=== PATIENT | female | born 1940 | race Caucasian/White ===

== ENCOUNTER 2022-03-06 09:10 | Observation (INO) ==
--- NOTE | 2022-01-29 16:04 | PAT Medication Instructions ---
Medication Instructions Date of Service January 29, 2022 Home Medications Medication Instructions Recorded oxycodone-acetaminophen 5 mg-325 1 tab PO Q6H PRN pain #30 tabs // mg tablet (Percocet) alpha lipoic acid 200 mg capsule 200 mg PO QAM celecoxib 200 mg capsule (Celebrex) 200 mg PO UD cholecalciferol (vitamin D3) 50 mcg (2,000 unit) tablet (Vitamin D3) 2,000 unit PO QDL coenzyme Q10 100 mg capsule (CoQ-10) 100 mg PO QAM furosemide 40 mg tablet (Lasix) 40 mg PO QAM lactobacillus combination no.4 3 billion cell capsule (Probiotic) 3,000 mmu cells PO BID levothyroxine 125 mcg tablet (Synthroid) 125 mcg PO QAM omega 2-tmz-wkt-fish oil 1,000 mg (120 mg-180 mg) capsule (Fish Oil) 1 cap PO TID potassium chloride 20 mEq tablet,extended release 20 meq PO QAM turmeric root extract 538 mg capsule 538 mg PO BID magnesium 200 mg tablet 400 mg PO HS methylcellulose (laxative) 500 mg tablet (Citrucel) 1,000 mg PO QPM prednisolone acetate 1 % eye drops,suspension 1 drp ophthalmic (eye) QAM amlodipine 5 mg tablet (Norvasc) 5 mg PO QAM oxycodone-acetaminophen 5 mg-325 mg tablet (Percocet) 1 tab PO Q6H PRN ascorbic acid (vitamin C) 500 mg tablet (Vitamin C) 500 mg PO BID levalbuterol tartrate 45 mcg/actuation aerosol inhaler 2 inh inhalation Q6H PRN omeprazole 40 mg capsule,delayed release 40 mg PO QAM ondansetron HCl 4 mg tablet 4 mg PO Q6H PRN sertraline 100 mg tablet 200 mg PO QAM Continue as directed ondansetron HCl 4 mg tablet 4 mg PO Q6H PRN(if needed) ASK your surgeon for instructions celecoxib 200 mg capsule (Celebrex) 200 mg PO UD STOP taking 2 weeks before surgery alpha lipoic acid 200 mg capsule 200 mg PO QAM coenzyme Q10 100 mg capsule (CoQ-10) 100 mg PO QAM omega 2-ktn-ssn-fish oil 1,000 mg (120 mg-180 mg) capsule (Fish Oil) 1 cap PO TID turmeric root extract 538 mg capsule 538 mg PO BID DO NOT take the morning of surgery cholecalciferol (vitamin D3) 50 mcg (2,000 unit) tablet (Vitamin D3) 2,000 unit PO QDL furosemide 40 mg tablet (Lasix) 40 mg PO QAM lactobacillus combination no.4 3 billion cell capsule (Probiotic) 3,000 mmu cells PO BID potassium chloride 20 mEq tablet,extended release 20 meq PO QAM ascorbic acid (vitamin C) 500 mg tablet (Vitamin C) 500 mg PO BID Take morning of surgery With a small sip of water, OTHERWISE NOTHING TO EAT OR DRINK AFTER MIDNIGHT: levothyroxine 125 mcg tablet (Synthroid) 125 mcg PO QAM prednisolone acetate 1 % eye drops,suspension 1 drp ophthalmic (eye) QAM amlodipine 5 mg tablet (Norvasc) 5 mg PO QAM oxycodone-acetaminophen 5 mg-325 mg tablet (Percocet) 1 tab PO Q6H PRN(if needed) levalbuterol tartrate 45 mcg/actuation aerosol inhaler 2 inh inhalation Q6H PRN (use if needed; please bring with you to hospital day of surgery if possible) omeprazole 40 mg capsule,delayed release 40 mg PO QAM sertraline 100 mg tablet 200 mg PO QAM Take evening before surgery lactobacillus combination no.4 3 billion cell capsule (Probiotic) 3,000 mmu cells PO BID magnesium 200 mg tablet 400 mg PO HS methylcellulose (laxative) 500 mg tablet (Citrucel) 1,000 mg PO QPM oxycodone-acetaminophen 5 mg-325 mg tablet (Percocet) 1 tab PO Q6H PRN(if needed) ascorbic acid (vitamin C) 500 mg tablet (Vitamin C) 500 mg PO BID levalbuterol tartrate 45 mcg/actuation aerosol inhaler 2 inh inhalation Q6H PRN (if needed) Other Notes If you have any questions please call us at [phone] or [phone] or [phone] or [phone]
--- NOTE | 2022-02-02 13:32 | Anesthesiology Consultation ---
Date of Service February 02, 2022 Assessment & Plan (1) Encounter for pre-operative examination: - pulmonology appointment 03/02, Dr. Alves [facility] [place]. - PCP pre-op evaluation 02/24, Jami Hernandez in [place]. - Case discussed in detail with Dr. Ramos including reported symptoms and he advised patient does not need a cardiology evaluation prior to surgery or any additional testing. - cardiology 07/25/21: "...mild shortness of breath, labile hypertension, hypertensive heart disease and history of mild pulmonary fibrosis stable...close clinical follow up with the continued medical treatment..." Chart Review Chart Review: Pending: Refer to Additional Notes / Consult section and Patient seen in Pre Admission Testing Teaching & Discussion Pre-Anesthesia Teaching/Discussion Notes: Instructed NPO after midnight before surgery, except medications with 15 cc of water. Medication instructions provided according to the PAT guidelines. History Surgery Operation Date: 03/06/22 12:50 Proposed Procedures p Right Reverse Total Shoulder Arthroplasty - Lion Contreras, Height/Weight Height: 5 ft 2 in Weight: 78.018 kg Allergies Allergy/AdvReac Type Severity Reaction Status Date / Time Sulfa (Sulfonamide Allergy Unknown Rash Verified 01/28/22 10:08 Antibiotics) sulfamethoxazole Allergy Unknown Rash Verified 01/28/22 10:08 trimethoprim Allergy Unknown RASH Verified 01/28/22 10:08 Medications Home Medications Medication Instructions Recorded Confirmed Last Taken alpha lipoic acid 200 mg capsule 200 mg PO QAM 03/13/19 01/28/22 04/07/20 celecoxib 200 mg capsule (Celebrex) 200 mg PO UD 03/13/19 01/28/22 04/07/20 cholecalciferol (vitamin D3) 50 2,000 unit PO QDL 03/13/19 01/28/22 04/07/20 mcg (2,000 unit) tablet (Vitamin D3) coenzyme Q10 100 mg capsule 100 mg PO QAM 03/13/19 01/28/22 03/25/20 (CoQ-10) furosemide 40 mg tablet (Lasix) 40 mg PO QAM 03/13/19 01/28/22 04/07/20 lactobacillus combination no.4 3 3,000 mmu cells PO BID 03/13/19 01/28/22 04/02/19 billion cell capsule (Probiotic) levothyroxine 125 mcg tablet 125 mcg PO QAM 03/13/19 01/28/22 04/08/20 05:45 (Synthroid) omega 1-hei-sax-fish oil 1,000 mg 1 cap PO TID 03/13/19 01/28/22 04/07/20 (120 mg-180 mg) capsule (Fish Oil) potassium chloride 20 mEq 20 meq PO QAM 03/13/19 01/28/22 04/07/20 tablet,extended release turmeric root extract 538 mg 538 mg PO BID 03/13/19 01/28/22 03/25/20 capsule magnesium 200 mg tablet 400 mg PO HS 03/20/20 01/28/22 04/07/20 methylcellulose (laxative) 500 mg 1,000 mg PO QPM 03/20/20 01/28/22 Unknown tablet (Citrucel) prednisolone acetate 1 % eye 1 drp ophthalmic (eye) QAM 03/20/20 01/28/22 04/07/20 drops,suspension amlodipine 5 mg tablet (Norvasc) 5 mg PO QAM 10/22/20 01/28/22 Unknown ascorbic acid (vitamin C) 500 mg 500 mg PO BID 01/28/22 01/28/22 Unknown tablet (Vitamin C) levalbuterol tartrate 45 2 inh inhalation Q6H PRN sob 01/28/22 01/28/22 Unknown mcg/actuation aerosol inhaler omeprazole 40 mg capsule,delayed 40 mg PO QAM 01/28/22 01/28/22 Unknown release ondansetron HCl 4 mg tablet 4 mg PO Q6H PRN Nausea 01/28/22 01/28/22 Unknown sertraline 100 mg tablet 200 mg PO QAM 01/28/22 01/28/22 Unknown oxycodone-acetaminophen 5 mg-325 1 tab PO Q6H PRN pain #30 tabs 02/02/22 02/02/22 Unknown mg tablet (Percocet) Past Medical History Medical History (Updated 02/02/22 @ 13:41 by Liz Ortega PA-C) Anxiety Asthma adult onset asthma. well controlled. last rescue inhaler use several wks ago Carotid artery stenosis mild bilat ICA stenosis (1-49%) per 01/23/21 carotid doppler report Depression GERD (gastroesophageal reflux disease) controlled, stable per pt Hearing deficit BL VALENTINO History of anesthesia reaction woke up during a hip surgery. History of colon polyps History of diverticulosis History of gastric ulcer History of skin cancer BASAL CELL, right lower leg, s/p excision Hyperlipidemia Hypothyroidism Mild aortic regurgitation Mild mitral regurgitation Pulmonary fibrosis Sleep apnea CPAP-compliant Patient denies h/o stroke, seizures, heart attack, heart failure, DM, blood clots or blood transfusions. Exercise / Class Metabolic Activity II 4-5 Yardwork/Stairs/Walk up hill (occasional SOB walking up 1 FOS, denies chest discomfort; denies change or worsening, states is ongoing at least several months) Past Family History Family History Sister Family history of diabetes mellitus Sister Family history of breast cancer Other No family history of adverse response to anesthesia Past Surgical History Surgical History (Updated 02/02/22 @ 13:39 by Liz Ortega PA-C) History of bilateral hip replacements History of bilateral knee replacement bilat History of cataract surgery BL History of colonoscopy History of esophagogastroduodenoscopy (EGD) History of keratoplasty bilateral History of tooth extraction History of total abdominal hysterectomy and bilateral salpingo-oophorectomy History of tubal ligation Past Anesthesia History No Family Hx of Anesthesia Complications and Other (awareness during hip surgery) History of PONV No Hx of PONV and No Hx of Motion Sickness Social History Smoking Status: Former smoker tobacco type: cigarettes Do You Dip or Chew Tobacco: No Smoking End Date: 1967 Hx Alcohol Use: No Hx Substance Use: No substance use type: does not use Review of Systems Occasional dizziness/lightheadedness when working outside in warm weather and stands up too quickly. Denies pre-syncope or syncopal episodes. Denies visual changes. Denies change in chronic headaches. Rare chronic palpitations per patient with chronic PVCs. Patient denies chest pain, fever, chills, cough, or wheezing. Physical Exam Vital Signs Vitals BP 150/71 P 72 TEMP 98.4 SP02 96% on RA RESP 18 Physical Full cervical extension range of motion without pain TMD 3.5 finger breadths Mallampati Score 3 Dentition: intact, upper denture, crown lower right side; denies chipped or loose teeth Lungs: normal respiratory effort. Clear throughout to auscultation, no adventitious breath sounds Cardiac: regular rate and rhythm, no murmurs noted Carotid arteries: negative bruit bilat Lab Results Anesthesia Preop Results Results Anesthesia Widget: WBC 4.73 K/ul (4.8-10.8) L 02/02/22 Hgb 13.4 g/dl (12.0-16.0) 02/02/22 Hct 40.1 % (34.1-44.9) 02/02/22 Plt 218 K/uL (130-400) 02/02/22 Na 140 mmol/L (136-145) 02/02/22 K 4.3 mmol/L (3.5-5.1) 02/02/22 Cl 104 mmol/L (98-107) 02/02/22 CO2 30 mmol/L (21-32) 02/02/22 BUN 16 mg/dl (6-23) 02/02/22 Creat 0.58 mg/dl (0.6-1.2) L 02/02/22 Glucose Level 95 mg/dl (70-99(Fasting)) 02/02/22 PT 10.8 Seconds (9.0-12.0) 02/02/22 PTT 28.9 Seconds (21.0-31.0) 02/02/22 INR 1.0 (0.9-1.1) 02/02/22 Blood Type O Positive 02/02/22 Antibody Screen NEGATIVE 02/02/22 Testing Electrocardiogram Date: 02/02/22 NSR, rate 72 bpm Chest X-Ray Date: 02/02/22 Cardiomediastinal and hilar silhouettes are within normal limits. No pneumothorax, pleural effusion, airspace consolidation or overt pulmonary edema. Degenerative changes of the shoulders and spine. IMPRESSION: No acute process. Echocardiogram Date: 09/25/20 EF 55-60% Grade I diastolic dysfunction Mild cLVH Mild aortic regurgitation Stress Test Date: 09/25/20 Pharmacologic MPHR not listed on report Negative for ischemia EF 65% Other Testing Carotid doppler 01/23/21 Mild bilateral internal carotid artery stenosis 1-49% COVID-19 Risk Screen Screening Information COVID-19 Screen Date: 02/02/22 Exposure 21 Days Family/Household +COVID Last 21 Days: No Exposure 10 Days Any COVID Exposure Last 10 Days: No Symptoms Last 10 Days Experienced COVID Sx Last 10 Days: No + COVID 0-90 Days COVID + in Last 0-90 Days: No
--- NOTE | 2022-03-05 07:54 | History & Physical Report ---
Date of Service March 05, 2022 Assessment & Plan (1) Rotator cuff tear, right: We will proceed with a right reverse shoulder arthroplasty. Postoperatively she will be placed in a sling and kept overnight in the hospital for postoperative medical management. She plans to have the hospital set up home health for discharge. History of Present Illness Chief Complaint: Cuff tear arthropathy of the right shoulder . Primary Care Provider: MELISSA Aguilar is a pleasant 81-year-old female who has been dealing with chronic bilateral shoulder pain. She has an MRI of her left shoulder in June 2018, which shows small rotator cuff tear. I have been treating her with serial injections. She has also been dealing with right shoulder pain. 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 I have been treating her with serial injections. Unfortunately, her right shoulder is getting worse.She is having trouble doing any activities away from her body or up overhead. It hurts her all the time. She presents to the office today to discuss further treatment. . Allergies Allergy/AdvReac Type Severity Reaction Status Date / Time Sulfa (Sulfonamide Allergy Unknown Rash Verified 01/28/22 10:08 Antibiotics) sulfamethoxazole Allergy Unknown Rash Verified 01/28/22 10:08 trimethoprim Allergy Unknown RASH Verified 01/28/22 10:08 Home Medications Medication Instructions Recorded Confirmed Type alpha lipoic acid 200 mg capsule 200 mg PO QAM 03/13/19 01/28/22 History celecoxib 200 mg capsule (Celebrex) 200 mg PO UD 03/13/19 01/28/22 History cholecalciferol (vitamin D3) 50 2,000 unit PO QDL 03/13/19 01/28/22 History mcg (2,000 unit) tablet (Vitamin D3) coenzyme Q10 100 mg capsule 100 mg PO QAM 03/13/19 01/28/22 History (CoQ-10) furosemide 40 mg tablet (Lasix) 40 mg PO QAM 03/13/19 01/28/22 History lactobacillus combination no.4 3 3,000 mmu cells PO BID 03/13/19 01/28/22 History billion cell capsule (Probiotic) levothyroxine 125 mcg tablet 125 mcg PO QAM 03/13/19 01/28/22 History (Synthroid) omega 0-uxg-xnk-fish oil 1,000 mg 1 cap PO TID 03/13/19 01/28/22 History (120 mg-180 mg) capsule (Fish Oil) potassium chloride 20 mEq 20 meq PO QAM 03/13/19 01/28/22 History tablet,extended release turmeric root extract 538 mg 538 mg PO BID 03/13/19 01/28/22 History capsule magnesium 200 mg tablet 400 mg PO HS 03/20/20 01/28/22 History methylcellulose (laxative) 500 mg 1,000 mg PO QPM 03/20/20 01/28/22 History tablet (Citrucel) prednisolone acetate 1 % eye 1 drp ophthalmic (eye) QAM 03/20/20 01/28/22 History drops,suspension amlodipine 5 mg tablet (Norvasc) 5 mg PO QAM 10/22/20 01/28/22 History ascorbic acid (vitamin C) 500 mg 500 mg PO BID 01/28/22 01/28/22 History tablet (Vitamin C) levalbuterol tartrate 45 2 inh inhalation Q6H PRN sob 01/28/22 01/28/22 History mcg/actuation aerosol inhaler omeprazole 40 mg capsule,delayed 40 mg PO QAM 01/28/22 01/28/22 History release ondansetron HCl 4 mg tablet 4 mg PO Q6H PRN Nausea 01/28/22 01/28/22 History sertraline 100 mg tablet 200 mg PO QAM 01/28/22 01/28/22 History oxycodone-acetaminophen 5 mg-325 1 tab PO Q6H PRN pain #30 tabs 02/02/22 02/02/22 Rx mg tablet (Percocet) Past Med/Surg History Medical History Anxiety Asthma adult onset asthma. well controlled. last rescue inhaler use several wks ago Carotid artery stenosis mild bilat ICA stenosis (1-49%) per 01/23/21 carotid doppler report Depression GERD (gastroesophageal reflux disease) controlled, stable per pt Hearing deficit BL VALENTINO History of anesthesia reaction woke up during a hip surgery. History of colon polyps History of diverticulosis History of gastric ulcer History of skin cancer BASAL CELL, right lower leg, s/p excision Hyperlipidemia Hypothyroidism Mild aortic regurgitation Mild mitral regurgitation Pulmonary fibrosis Sleep apnea CPAP-compliant Surgical History History of bilateral hip replacements History of bilateral knee replacement bilat History of cataract surgery BL History of colonoscopy History of esophagogastroduodenoscopy (EGD) History of keratoplasty bilateral History of tooth extraction History of total abdominal hysterectomy and bilateral salpingo-oophorectomy History of tubal ligation Family History Sister Family history of diabetes mellitus Sister Family history of breast cancer Other No family history of adverse response to anesthesia Social History Smoking Status: Former smoker Second Hand Exposure: No; Hx Alcohol Use: No Hx Substance Use: No Preferred Language: Irish Communication Ability: Effective [employer] Required: No Beliefs That Will Affect Care: None Current Living Situation: Alone Feels Safe at Home: Yes Assistive Devices: CPAP, Denture - Upper, Glasses and Hearing Aid - Bilateral Review of Systems All systems reviewed & are unremarkable except as noted in HPI & below. Physical Exam On physical examination of the right shoulder, she has decreased range of motion and weakness throughout. She has pain over the glenohumeral joint line. . Constitutional WD/WN, vitals as above Eyes PERRL, conjunctivae normal, anicteric sclerae ENMT external ear and nose normal, oropharynx normal Neck trachea midline, no thyromegaly Respiratory normal respiratory effort, lungs clear to auscultation Cardiovascular RRR, no murmur, no edema Gastrointestinal (Abdomen) normal bowel sounds, soft, nontender, no hepatosplenomegaly Skin no rashes, warm and dry Psychiatric A+Ox3, euthymic affect Results & Data Results & Data Laboratory Results . Diagnostic Findings X-rays of the right shoulder show superior migration of the humeral head on the glenoid. There is also signs of glenohumeral arthritis. . PG Care Time/CCT Total # of Minutes Spent Total Time Spent with Patient: Total time spent is greater than 50% in coordination of care (as documented) at patient's floor/unit and/or counseling patient: Coding Level of Care Code None Diagnoses Rotator cuff tear, right M75.101
[~2022-03-06 09:10] MED LIST: ACETAMINOPHEN 500 MG TAB PO SCH; BUPIVACAINE 0.5 % 5 MG/1 ML PF 10ML VIAL ONE; FAMOTIDINE 20 MG TAB PO SCH; GABAPENTIN 300 MG CAP PO SCH; LR 15ML/HR IV SCH; LR 60ML/HR IV SCH; ORTHO JOINT MIX INFIL SCH; TRANEXAMIC ACID 1,000 MG **IV Intra-op IV SCH; TRANEXAMIC ACID 1,000 MG **IV Pre-op IV SCH; ceFAZolin 2000MG 2,000 MG/15 ML SYR IV SCH; dexAMETHasone 4 MG TAB PO SCH
[2022-03-06] MEDS ORDERED: fentaNYL citrate 100 MCG/2 ML VIAL ONE (10:33)
[2022-03-06] MEDS ORDERED: ROCURONIUM BROMIDE 10 MG/ML 5 ML VIAL IV ONE (10:33)
[2022-03-06] MEDS ORDERED: PROPOFOL IV EMULSION 10 MG/ML 20 ML VIAL IV ONE (10:33)
[2022-03-06] MEDS ORDERED: LIDOCAINE 2% 20 MG/ML 5 ML SYR IV ONE (10:33)
[2022-03-06] MEDS ORDERED: DEXAMETHASONE SOD INJ 4 MG/ML VIAL ONE (10:33)
[2022-03-06] MEDS ORDERED: ONDANSETRON INJ 2 MG/ML 2 ML VIAL ONE (10:33)
[2022-03-06] MEDS ORDERED: PROMETHAZINE HCL 12.5 MG in SODIUM CHLORIDE 0.9% 50 ML IV PRN (11:38)
[2022-03-06] MEDS ORDERED: HYDROmorphone INJ 2 MG/ML SYR/VIAL IV PRN (11:38)
[2022-03-06] MEDS ORDERED: ATROPINE SULFATE 0.1 MG/ML 10ML SYR IV PRN (11:38)
[2022-03-06] MEDS ORDERED: ePHEDrine sulfate 50 MG/ML AMP IV PRN (11:38)
[2022-03-06] MEDS ORDERED: fentaNYL citrate 100 MCG/2 ML VIAL IV PRN (11:38)
[2022-03-06] MEDS ORDERED: ONDANSETRON INJ 2 MG/ML 2 ML VIAL IV PRN ×2 (11:38→15:21)
[2022-03-06] MEDS ORDERED: ORTHO JOINT ANESTHETIC ONE (11:57)
[2022-03-06] MEDS ORDERED: MIDAZOLAM HCL 1 MG/ML 2ML VIAL ONE (12:05)
--- NOTE | 2022-03-06 12:06 | History & Physical Bridge Note ---
Date of Service March 06, 2022 History & Physical Bridge Note I have examined the patient, reviewed the History & Physical and in the interval since the performance of the History & Physical I have noted the following changes of clinical significance: no changes noted
--- NOTE | 2022-03-06 13:34 | Operative Report ---
PG Post Operative Report Pre & Post Diagnosis Operation Date: 03/06/22 11:40 Pre-Op Diagnosis: Cuff tear arthropathy of the right shoulder with tendinopathy of the long head of biceps tendon Post-Op Diagnosis: Cuff tear arthropathy of the right shoulder with tendinopathy of the long head of biceps tendon I identified the patient and participated in the time-out.: Yes Procedure Operation Date: 03/06/22 11:40 Actual Procedures p Right Reverse Total Shoulder Arthroplasty(Right) with open biceps tenodesis as a distinct and separate procedure (modifier 59)- Lion Contreras DO Surgeon Lion Contreras DO Cement Tile Maker Lion Taylor PA-C Estimated Blood Loss 200 Findings Consistent with Post-Op Diagnosis Specimens Right humeral head Description of Procedure A CPT code modifier 59: The long head of the biceps tendon was enlarged and inflamed consistent with tendinopathy. A tenodesis was opted. This was a separate and distinct portion of the procedure. For these reasons, a CPT code modifier 59 will be added to this case. Implants used: I used a [employer]omet Comprehensive reverse total shoulder arthroplasty system with a size 10 press fit micro humeral stem, a +6 offset humeral tray and a standard humeral bearing, a 25 mm small augment baseplate with a 6.5 mm central screw and superior and inferior locking screws, and a size 36 mm eccentric glenosphere. Lauren [facility] at [facility] for the above procedure. She was seen in the preoperative holding area and the operative extremity was identified and signed. She was given a preoperative antibiotic, TXA, and an interscalene nerve block. She was taken back to the operating room, laid on table in supine position, and put under general anesthesia. She was then put into the beachchair position. The shoulder was then prepped and draped in sterile fashion. A timeout was done and the patient and the operative extremity was properly identified. A deltopectoral approach was used. Dissection was taken down through the fascia and the deltoid was retracted laterally and the conjoined tendon was retracted medially. The anterior shoulder was exposed. The biceps groove was opened up and the biceps tendon was examined extensively. The biceps tendon demonstrated enlargement and inflammatory changes consistent with longstanding inflammation in the context of osteoarthritis and cuff arthropathy. The long head of the biceps tendon was then tenodesed to the upper border of the pectoralis major. This was a separate and distinct portion of the procedure. The subscapularis was then directly released off the lesser tuberosity with a peel technique. The inferior capsule was released and the humeral head was dislocated. A canal finding reamer was sent down the center of the humeral canal. Sequential reaming up to a size 10 reamer was done. Off that reamer, a proximal humeral resection guide was placed. The proximal humerus was resected at 135 of inclination and 25 of retroversion. Osteophytes were then removed and the glenoid was exposed. Time was spent doing a complete capsular and labral r elease. The glenoid guide was then placed in the inferior aspect of the glenoid. A 3.2 mm Steinmann pin was then placed into the glenoid vault at 10 of inclination. The glenoid baseplate was then reamed. The final size 25 mm small augment baseplate was then impacted in the place. A 6.5 mm central screw was then placed followed by superior and inferior locking screws. A 36 mm eccentric gle nosphere was then impacted into place. Surrounding soft tissues were then injected with 100 cc an orthopedic pain control cocktail. The proximal humerus was then exposed. Sequential broaching of the humerus up to a size 10 broach was done. Off that broach a +6 offset humeral tray was trialed. The shoulder was then reduced, brought through a full range of motion, and felt to be stable. The shoulder was then dislocated and the broach was removed. The final size 10 micro press-fit humeral stem was then impacted into place. A standard humeral bearing was then snapped onto a +6 offset humeral tray. The humeral tray was then impacted onto the humeral stem. The shoulder was once again reduced, brought through a full range of motion, and felt to be stable. The subscapularis was then tenodesed back to the lesser tuberosity with transosseous FiberWire sutures and side to side sutures with the arm in 45 of external rotation. A dilute betadyne lavage was then done for 3 minutes. The joint was then irrigated with normal saline solution. Hemostasis was obtained. The interval was closed with 2-0 Vicryl suture. The skin was then closed with 2-0 Vicryl and rowdy. A Silverlon dressing was placed and the arm was rested in a regular arm sling. She was then extubated and transferred to a hospital bed. She taken to the postanesthesia care unit in stable condition. She tolerated the procedure well. Lion Taylor PA-C, was present for the entire procedure. He was critical for patient positioning, prepping, draping, retraction exposure, wound closure and application of sterile dressing. I attest to the content of the Intraoperative Record and any orders documented therein. Any exceptions are noted below.
--- NOTE | 2022-03-06 14:38 | Anesthesiology Progress Note ---
Date of Service March 06, 2022 Anesthesia Post Procedure Vital Signs Vital Signs: Temp Pulse Pulse Resp BP BP Pulse Ox 03/06/22 14:20 77 16 121/52 L 95 03/06/22 14:30 77 16 123/49 L 92 03/06/22 14:10 74 18 129/55 L 98 03/06/22 14:02 36.3 C L 76 17 110/55 L 95 03/06/22 09:52 36.6 C 79 20 155/66 H 20 L O2 Del Method 03/06/22 14:20 Room Air 03/06/22 14:30 Room Air 03/06/22 14:10 Room Air 03/06/22 14:02 Room Air 03/06/22 09:52 Room Air Pain Intensity Right Shoulder: Pain Intensity: 2 Transfer of Care Handoff Completed per policy Notes Mental Status: alert / awake / arousable and participated in evaluation Patient Amnestic to Procedure: Yes Nausea / Vomiting: adequately controlled Pain: adequately controlled Airway Patency, RR, SpO2: stable & adequate BP & HR: stable & adequate Hydration State: stable & adequate Anesthetic Complications: no major complications apparent
--- NOTE | 2022-03-06 14:42 | XRay Report ---
XR shoulder RT min 2V routine HISTORY: 81 years-old Female Post shoulder surgery right shoulder arthroplasty COMPARISON: 02/02/2022 TECHNIQUE: 2 views of the right shoulder FINDINGS: Reverse total joint arthroplasty demonstrates satisfactory alignment. Overlying skin rowdy are note d along with expected postoperative soft tissue swelling with deep tissue air. No acute fracture, ali gnment or unexpected opaque foreign body. Cardiomegaly. IMPRESSION: Reverse right shoulder total joint arthroplasty with expected postoperative changes. ACT 112: Negative or not required by law. The above report was generated using voice recognition software. It may contain grammatical, syntax o r spelling errors. Electronically signed by: Kofi Tucker M.D. 03/06/2022 2:41 PM
[2022-03-06] MEDS ORDERED: LEVALBUTEROL TARTRATE 15 GM HFA.AER.AD INH PRN (15:21)
[2022-03-06] MEDS ORDERED: SODIUM CHLORIDE 0.9% 1000ML 1,000 ML IV SCH (15:21)
[2022-03-06] MEDS ORDERED: MAGNESIUM HYDROXIDE SUSP 30 ML UDC PO PRN (15:21)
[2022-03-06] MEDS ORDERED: bisacodyL 10 MG SUPP PR PRN (15:21)
[2022-03-06] MEDS ORDERED: METOCLOPRAMIDE HCL INJ 5 MG/ML 2 ML VIAL IV PRN (15:21)
[2022-03-06] MEDS ORDERED: NALOXONE HCL 0.4 MG/1 ML VIAL/CARP IV PRN (15:21)
[2022-03-06] MEDS ORDERED: HYDROmorphone INJ 0.5 MG/0.5 ML SYR IV PRN (15:21)
[2022-03-06] MEDS: KETOROLAC TROMETHAMINE 15 MG/ML VIAL IV SCH ×2 (17:01→22:30)
[2022-03-06] MEDS: ACETAMINOPHEN 500 MG TAB PO SCH ×2 (17:05→22:31)
[2022-03-06] MEDS: ceFAZolin 2000MG 2,000 MG/15 ML SYR IV SCH (20:30)
[2022-03-06] MEDS: DOCUSATE SODIUM 100 MG CAP PO SCH (20:32)
[2022-03-06] MEDS ORDERED: SENNA 8.6 MG TAB PO SCH (21:00)
[2022-03-06] MEDS ORDERED: MAGNESIUM OXIDE 400 MG TAB PO SCH (21:00)
[2022-03-06] MEDS: oxyCODONE HCL IR 5 MG TAB (IMMEDIATE RELEASE) PO PRN (22:45)
[2022-03-07] MEDS: KETOROLAC TROMETHAMINE 15 MG/ML VIAL IV SCH ×2 (04:57→10:35)
[2022-03-07] MEDS: ceFAZolin 2000MG 2,000 MG/15 ML SYR IV SCH (04:57)
[2022-03-07] MEDS: ACETAMINOPHEN 500 MG TAB PO SCH (05:02)
[2022-03-07] MEDS: oxyCODONE HCL IR 5 MG TAB (IMMEDIATE RELEASE) PO PRN (05:08)
[2022-03-07] MEDS ORDERED: LEVOTHYROXINE SODIUM 125 MCG TABLET PO SCH (06:30)
[2022-03-07] MEDS ORDERED: dexAMETHasone 4 MG TAB PO SCH (08:00)
--- NOTE | 2022-03-07 08:51 | Orthopedic Progress Note ---
Date of Service March 07, 2022 Assessment & Plan (1) Status post reverse total replacement of right shoulder: Overall she is doing very well. She is not having much pain in the right shoulder. She will be seen by physical therapy today for ambulation and range of motion exercises. She can be discharged home later today. She will follow- up orthopedics in 2 weeks. Kyler Aguilar was seen and examined at bedside this morning. Overall she is doing very well. She is not having any pain in the right shoulder. The nerve block is still in effect. She was able to get some sleep last night. She has no complaints.. Review of Systems All systems reviewed & are unremarkable except as noted in HPI & below. Physical Exam On physical examination of the right shoulder, the dressing is clean and dry. The nerve block is still in effect. She is wearing her sling as instructed.. Results & Data Results & Data Laboratory Results . Diagnostic Findings Postoperative x-rays of the right shoulder show the prosthesis to be in anatomic alignment without any evidence of fracture, screws, or loosening. PG Care Time/CCT Total # of Minutes Spent Total Time Spent with Patient: Total time spent is greater than 50% in coordination of care (as documented) at patient's floor/unit and/or counseling patient: Coding Level of Care Code 65559 Post Operative Follow-Up Diagnoses Status post reverse total replacement of right shoulder Z96.611
--- NOTE | 2022-03-07 08:52 | Discharge Summary ---
Date of Service March 07, 2022 Admission HPI (Per Admitting) Lauren is a pleasant 81-year-old female who has been dealing with chronic bilateral shoulder pain. She has an MRI of her left shoulder in June 2018, which shows small rotator cuff tear. I have been treating her with serial injections. She has also been dealing with right shoulder pain. 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 I have been treating her with serial injections. Unfortunately, her right shoulder is getting worse.She is having trouble doing any activities away from her body or up overhead. It hurts her all the time. She presents to the office today to discuss further treatment. . Admission Exam (Per Admitting) On physical examination of the right shoulder, she has decreased range of motion and weakness throughout. She has pain over the glenohumeral joint line. . Principal Diagnosis Same as "Discharge Diagnosis" noted below under Discharge Instructions. Discharge Exam On physical examination of the right shoulder, the dressing is clean and dry. The nerve block is still in effect. She is wearing her sling as instructed.. Discharge Data Procedures Performed Operation Date: 03/06/22 11:40 Actual Procedures p Right Reverse Total Shoulder Arthroplasty(Right) - Lion Contreras DO Ordered Studies 03/06/22 05:00 US - OR guided needle placemen Routine Hospital Course (1) Status post reverse total replacement of right shoulder: On March 06, 2022 Lauren arrived at [facility] and underwent a right reverse shoulder replaced without complication. She had a general anesthetic and a right interscalene nerve block. Postoperatively she was placed in a sling and transferred to the general orthopedic floors. Her hospital course was uneventful. On postop day #1, her vital signs were stable and her pain was well controlled. She was able to participate well with physical therapy doing ambulation and range of motion exercises. She was then discharged home. She will follow-up with orthopedics in 2 weeks. PG Care Time/CCT Total # of Minutes Spent Total Time Spent with Patient: Total time spent is greater than 50% in coordination of care (as documented) at patient's floor/unit and/or counseling patient: Discharge Plan Discharge Items Patient Disposition: Home - Home Health Services Reason For Visit: DJD Shoulder Right Discharge Diagnosis: Right reverse shoulder replacement Activity: Per Instructions section Non-emergency contact: Surgeon Call non-emergency contact if: your wound has increased redness and your wound has increased drainage Follow-up/Referrals: MELISSA TRONCOSO M.D. [Primary Care Provider] - Diet: Regular Addtl Attending Provider Instructions: Activity and Therapy Recommendations: * If you are using [facility] then therapy will be provided at your home until they feel you have accomplished all of your goals. * If you are using [facility] then Physical Therapy will be provided until they feel you are ready to start Outpatient Physical Therapy. * If you are not using home therapy then Outpatient Physical Therapy should start about 3-5 days from your day of surgery. Therapy will last about 8-12 weeks * Wear your sling for 3 weeks, unless otherwise instructed. You may remove your sling to shower and to dress, but otherwise, you should be in your sling at all times, including while sleeping * The shoulder replacement is very stable and you can use your hand while in the sling * You were shown a series of exercises in the hospital. Do these exercises daily including the exercises you were shown in physical therapy. Medications: * Narcotic You will likely be sent home from the hospital with a prescription for the narcotic pain medication that worked best throughout your stay. * Other medications may be prescribed for specific circumstances. If you have any questions, please call the office at . * Resume previous home medications unless otherwise instructed Dressing Care: Leave the Silverlon dressing in place for 7 days. After 7 days you may remove the dressing. If the incision is not draining then you may leave the rowdy open to air. If there is a little bit of drainage or if the rowdy are getting stuck on your clothing then cover the incision with a dry dressing. The rowdy will be removed at your 2 week follow-up appointment. Showering: You may shower with the Silverlon dressing in place. Do not let the shower spray hit the dressing directly. Pat the Silverlon dressing dry. If the dressing becomes wet underneath, then simply remove the dressing. Keep the incision dry until you are 7 days out from the day of surgery. After 7 days you may remove the Silverlon dressing and shower with the rowdy exposed. Let soapy water run over the rowdy and pat them dry. Do not scrub or soak the incision. Things To Watch For: * Drainage from the incision site that occurs more than one week after your surgery. * Increased redness at the incision site. * Fever above 102 degrees Fahrenheit. * Unusual chest pain or shortness of breath. * Call [facility] at with any of the above problems Follow-Up Visit: Follow-up with Dr. Contreras's PA (Lion Taylor) 2-3 weeks after your day of surgery. He will remove your rowdy and answer any questions. If you have any additional questions or concerns, Dr Contreras is usually in the office at the same time and will be available An appointment was probably scheduled when you signed-up for surgery in the office. If you have any questions call More detailed instructions as well as Frequently Asked Questions were provided in a folder by our office when you signed-up for surgery. Please review these instructions when you get home. If you have any further questions or concerns, please feel free to call the office at [phone] Pending Studies at Discharge: No Stand-Alone Forms: My [facility] Medications and DC Order Prescriptions: Continued amlodipine [Norvasc] 5 mg tablet 5 mg PO QAM Citrucel 500 mg Tablet 1,000 mg PO QPM magnesium 200 mg Tablet 400 mg PO HS celecoxib [Celebrex] 200 mg Capsule 200 mg PO UD Label Comments: CURRENTLY TAKING EVERY DAY, USUALLY ONLY 3 X WK furosemide [Lasix] 40 mg Tablet 40 mg PO QAM levothyroxine [Synthroid] 125 mcg Tablet 125 mcg PO QAM coenzyme Q10 [CoQ-10] 100 mg Capsule 100 mg PO BID cholecalciferol (vitamin D3) [Vitamin D3] 2,000 unit Tablet 2,000 unit PO PM omega 2-vfg-esy-fish oil [Fish Oil] 1,000 mg (120 mg-180 mg) Capsule 1 cap PO TID alpha lipoic acid 200 mg Capsule 200 mg PO QAM Probiotic 3 billion cell Capsule 3,000 mmu cells PO BID potassium chloride 20 mEq Tablet Extended Release 20 meq PO QAM turmeric root extract 538 mg Capsule 538 mg PO BID sertraline 100 mg Tablet 200 mg PO QAM omeprazole 40 mg Capsule,Delayed Release(Dr/Ec) 40 mg PO QAM ondansetron HCl [Zofran] 4 mg Tablet 4 mg PO Q6H PRN (Reason: Nausea) ascorbic acid (vitamin C) [Vitamin C] 500 mg Tablet 1,000 mg PO BID levalbuterol tartrate 45 mcg/actuation Hfa Aerosol Inhaler 2 inh INHALATION Q6H PRN (Reason: sob) fluorometholone 0.1 % Drops,Suspension 1 drp OPB DAILY oxycodone-acetaminophen [Percocet] 5-325 mg tablet 1 tab PO Q6H PRN (Reason: pain) Qty: 30 0RF Discharge Orders: Discharge Order (Routine); Ordered 03/07/22 Ordered By: Lion Contreras Admission Data Admit Date/Time: 03/06/22 13:52 Attending Provider: Lion Contreras Admit Provider: Lion Contreras Primary Care Provider: MELISSA TRONCOSO
[2022-03-07] MEDS: DOCUSATE SODIUM 100 MG CAP PO SCH (08:55)
[2022-03-07] MEDS ORDERED: POTASSIUM CHLORIDE CRTAB 20 MEQ TABCR PO SCH (09:00)
[2022-03-07] MEDS ORDERED: MULTIVITAMIN TAB PO SCH (09:00)
[2022-03-07] MEDS ORDERED: amLODIPine BESYLATE 5 MG TAB PO SCH (09:00)
[2022-03-07] MEDS ORDERED: SERTRALINE HCL 100 MG TABLET PO SCH (09:00)
[2022-03-07] MEDS ORDERED: FUROSEMIDE 40 MG TAB PO SCH (09:00)
== END 2022-03-07 14:05 | disposition home health service (06) ==
LOC: 3E 09:10 → ASU 09:10
DX: Z88.2 Allergy status to sulfonamides; Z79.899 Other long term (current) drug therapy; Z88.8 Allergy status to other drugs, medicaments and biological substances; Z79.890 Hormone replacement therapy; M19.011 Primary osteoarthritis, right shoulder; M75.101 Unspecified rotator cuff tear or rupture of right shoulder, not specified as traumatic